=== PATIENT | male | born 1985 | race Two or more races ===

== ENCOUNTER 2016-07-17 17:56 | Emergency (ER) | payer MEDICAID ==
[~2016-07-17] VITALS: Ht 175.3 cm; Wt 117.9 kg
[2016-07-17 20:15] LABS: Basophils # (auto) 0 uL; Basophils % (auto) 0.3 % (0.0-2.0); Eosinophils # (auto) 0.1 uL; Eosinophils % (auto) 0.5 % (0.0-7.0); Hemoglobin 15.4 g/dL (13.5-17.5); Lymphocytes # (auto) 2.5 uL; Lymphocytes % (auto) 17.6 % (10.0-50.0); Mean Corpuscular Hemoglobin 29.5 pg (28.0-32.0); Mean Corpuscular Hgb Conc. 33.5 g/dL (32.0-36.0); Mean Corpuscular Volume 87.8 fL (80.0-100.0); Mean Platelet Volume 8.6 fL (7.4-10.4); Monocytes # (auto) 0.8 uL; Monocytes % (auto) 5.5 % (0.0-12.0); Neutrophils # (auto) 10.9 uL; Neutrophils % (auto) 76.1 % (37.0-80.0); Platelet Count (auto) 401 10^3/uL (140-450); Red Cell Distribution Width 13.4 % (11.6-16.0); White Blood Cell 14.3 10^3/uL (4.4-10.8)
[2016-07-17 20:32] LABS: Urine Bilirubin Negative (Negative); Urine Color Yellow (Yellow); Urine Glucose Normal (Normal); Urine Ketone Negative (Negative); Urine Mucus FEW (None Seen); Urine Nitrite Negative (Negative); Urine RBC 74 /hpf (0 - 3); Urine Urobilinogen Normal (Negative); Urine pH 7.5 (5.0-8.0)
[2016-07-17 20:41] LABS: Albumin 4.3 g/dL (3.4-5.0); BUN/Creatinine Ratio 14.9; Bilirubin, Total 0.3 mg/dL (0.2-1.0); Calcium 9.5 mg/dL (8.5-10.1); Potassium 3.7 mmol/L (3.5-5.1); Total Protein 8.6 g/dL (6.4-8.2)
[2016-07-17 20:42] LABS: Urine Blood 2+ /uL (Negative)
[2016-07-18] MEDS ORDERED: SODIUM CHLORIDE 0.9% 1,000 ML IV ONE (01:00)
[2016-07-18] MEDS ORDERED: NALBUPHINE HCL 10 MG/1ml INJECTION IV ONE (01:00)
[2016-07-18] MEDS ORDERED: PANTOPRAZOLE 40 MG TAB PO ONE (04:15)
[2016-07-18 05:21] VITALS: BP 148/93
== END 2016-07-18 05:24 | disposition home or self-care (01) ==
LOC: ER 18:02
DX: N20.0 Calculus of kidney (principal); N23 Unspecified renal colic
CPT/HCPCS: 36415; 74176; 80053; 81001; 85025; 96361; 96374; 99285; J2300; J7030

== ENCOUNTER 2024-03-04 05:47 | Emergency (ER) | payer MEDICAID ==
[~2024-03-04] VITALS: Ht 175.3 cm; Wt 99.4 kg
[2024-03-04 06:25] VITALS: PULSE 92; RESP 26; O2SAT 94
--- NOTE | 2024-03-04 06:46 | ECG ---
[facility] Test Date: 2024-03-04 Test Time: 06:44:46 Pat Name: ELOISA TAYLOR Department: ED Room: Gender: M Automatic Blocker: BELLO : 1985 Requested By: EMERGENCY EMERGENCY Order Number: [id number] Reading MD: Ashish Casarez Measurements Intervals [place] Rate: 86 P: 49 [place]: 195 QRS: 21 QRSD: 113 T: 23 QT: 376 QTc: 450 Interpretive Statements Sinus rhythm Probable left atrial enlargement Incomplete right bundle branch block ST elevation suggests acute pericarditis Electronically Signed On 03-05-2024 8:49:19 PST by Ashish Casarez Please click the below link to view image of tracing.
--- NOTE | 2024-03-04 07:21 | ED.PDOC ---
HPI Comments 38Y M with PMHx DM presents to ED for chief complaint chest pain. Pt states the chest pain is left-sided and non-radiating. Additional symptom includes left arm weakness/numbness. Pt states he feels his arm "falling asleep" and "jolts" randomly. Symptoms began while pt was having intercourse at approximately 0530 today. Pt states he drank alcohol heavily and did cocaine last night at approximately 0100. No other symptoms reported. Chief Complaint: Chest Pain Time Seen by MD: 06:50 Primary Care Provider: NONE Reviewed Notes: Nurses Notes, Medications, Allergies Allergies: Coded Allergies: NO KNOWN ALLERGIES (Unverified , 07/18/16) Information Source: Patient Mode of Arrival: Ambulatory Severity: Mild Timing: Hours Duration: Since onset Location: Chest (L) Radiation: No Radiation Quality: Other Onset: With Light Exertion Cardiac Risk Factors: Smoker, Drugs PE Risk Factors: None History of: None Modifying Factors: Nothing Associated Signs and Symptoms: Other Past Medical History PAST MEDICAL HISTORY: Anxiety, Depression, DM, Kidney Stones Surgical History: Denies all surgeries Family History Family History: No family hx of Cancer, No family hx of HTN, No family hx ofKidney alex Social History Smoker: Cigarettes Alcohol: Heavy Drugs: Cocaine Lives In: Home Constitutional: denies: chills, diaphoresis, fatigue, fever, malaise, sweats, weakness, others EENTM: denies: blurred vision, double vision, ear bleeding, ear discharge, ear drainage, ear pain, ear ringing, eye pain, eye redness, hearing loss, mouth pain, mouth swelling, nasal discharge, nose bleeding, nose congestion, nose pain, photophobia, tearing, throat pain, throat swelling, voice changes, others Respiratory: denies: cough, hemoptysis, orthopnea, SOB at rest, shortness of breath, SOB with excertion, stridor, wheezing, others Cardiovascular: reports: chest pain; denies: dizzy spells, diaphoresis, Dyspnea on exertion, edema, irregular heart beat, left arm pain, lightheadedness, palpitations, PND, syncope, others Gastrointestinal: denies: abdomen distended, abdominal pain, blood streaked bowels, constipated, diarrhea, dysphagia, difficulty swallowing, hematemesis, melena, nausea, poor appetite, poor fluid intake, rectal bleeding, rectal pain, vomiting, others Genitourinary: denies: burning, dysuria, flank pain, frequency, hematuria, incontinence, penile discharge, penile sore, pain, testicle pain, testicle swelling, urgency, others Neurological: reports: left sided numbness, left sided weakness; denies: dizziness, fainting, headache, numbness, paresthesia, pre-existing deficit, right sided numbness, right sided weakness, seizure, speech problems, tingling, tremors, weakness, others Musculoskeletal: denies: back pain, gout, joint pain, joint swelling, muscle pain, muscle stiffness, neck pain, others Integumetry: denies: bruises, change in color, change in hair/nails, dryness, laceration, lesions, lumps, rash, wounds, others Allergic/Immunocompromised: denies: Difficulty Healing, Frequent Infections, Hives, Itching, others Hematologic/Lymphatic: denies: anemia, blood clots, easy bleeding, easy bruising, swollen glands, others Endocrine: denies: excessive hunger, excessive sweating, excessive thirst, excessive urination, flushing, intolerance to cold, intolerance to heat, unexplained weight gain, unexplained weight loss, others Psychiatric: denies: anxiety, bipolar disorder, depression, hopeless, panic disorder, schizophrenia, sleepless, suicidal, others All Other Systems: Reviewed and Negative Physical Exam General Appearance: Mild Distress, Normal HEENT: Normal ENT Inspection, PERRL/EOMI, Pharynx Normal, TMs Normal Neck: Full Range of Motion, Non-Tender, Normal, Normal Inspection Respiratory: Chest Non-Tender, Lungs Clear, No Accessory Muscle Use, No Respiratory Distress, Normal Breath Sounds Cardiovascular: No Edema, No JVD, No Murmur, No Gallop, Normal Peripheral Pulses, Regular Rate/Rhythm Breast Exam: Deferred Gastrointestinal: No Organomegaly, Non Tender, No Pulsatile Mass, Normal Bowel Sounds, Soft Genitalia: Deferred Pelvic: Deferred Rectal: Deferred Extremities: No calf tenderness, Normal capillary refill, Normal inspection, Normal range of motion, Non-tender, No pedal edema Musculoskeletal : Apperance: Normal Neurologic: Alert, development executive II-XII nml as Tested, No Motor Deficits, Normal Affect, Normal Mood, No Sensory Deficits Cerebellar Function: Normal Reflexes: Normal Skin: Dry, Normal Color, Warm Peripheral Pulses: 1+ carotid (R), 1+ carotid (L) Lymphatic: No Adenopathy EKG EKG : Pulse Rate (adult): 112 [place]: RAD Cardiac Rhythm: ST Was a procedure done? Was a procedure done?: No CP Differential Dx Differential Diagnosis: Anxiety / Panic Attack, Electrolyte Disorder, Hyperventilation, Sinus Tachycardia Differential Diagnosis: HTN Essential Differential Diagnosis: Chest Wall Pain, Costochondritis, Esophageal reflux/spasm, Pneumonia X-Ray, Labs, Meds, VS Vital Signs Date Time Temp Pulse Resp B/P (MAP) Pulse Ox O2 Delivery O2 Flow Rate FiO2 03/04/24 10:00 97 22 149/76 (100) 98 03/04/24 07:48 97.8 89 17 131/72 (91) 98 97.8 03/04/24 07:45 89 17 98 Room Air* 0 21 03/04/24 07:42 112 03/04/24 06:44 86 03/04/24 06:25 98.7 92 26 132/80 (97) 94 98.7 03/04/24 06:25 92 26 94 Room Air* 0 21 03/04/24 05:51 112 03/04/24 05:50 98.3 113 18 150/101 (117) 95 Lab Test 03/04/24 09:09 03/04/24 09:00 03/04/24 07:08 03/04/24 06:00 Range/Units Troponin I High Sensitivity 21 18 18 </=54 ng/L Urine Color Light-yellow Yellow Urine Clarity Clear Clear Urine pH 6.5 5.0-9.0 Urine Specific [place] 1.014 1.001-1.035 Urine Protein 1+ H Negative Urine Ketones 1+ H Negative Urine Blood Negative Negative /uL Urine Nitrite Negative Negative Urine Bilirubin Negative Negative Urine Urobilinogen Normal Negative mg/dL Urine Leukocyte Esterase Negative Negative /uL Urine RBC 1 0 - 3 /hpf Urine WBC 3 0 - 3 /hpf Urine Squamous Epithelial Cells Few <5 /hpf Urine Bacteria Few H None Seen /hpf Urine Mucus Few None Seen Urine Glucose 4+ H Normal mg/dL White Blood Count 8.7 4.4-10.8 10^3/uL Red Blood Count 5.07 4.5-5.90 10^6/uL Hemoglobin 15.6 13.5-17.5 g/dL Hematocrit 45.1 41.0-53.0 % Mean Corpuscular Volume 89.0 80.0-100.0 fL Mean Corpuscular Hemoglobin 30.7 28.0-32.0 pg Mean Corpuscular Hemoglobin Concent 34.5 32.0-36.0 g/dL Red Cell Distribution Width 13.0 11.8-14.3 % Platelet Count 389 140-450 10^3/uL Mean Platelet Volume 8.5 6.9-10.8 fL Neutrophils (%) (Auto) 60.4 37.0-80.0 % Lymphocytes (%) (Auto) 33.4 10.0-50.0 % Monocytes (%) (Auto) 5.0 0.0-12.0 % Eosinophils (%) (Auto) 0.7 0.0-7.0 % Basophils (%) (Auto) 0.5 0.0-2.0 % Neutrophils # (Auto) 5.3 1.6-8.6 10 ^3/uL Lymphocytes # (Auto) 2.9 0.4-5.4 10 ^3/uL Monocytes # (Auto) 0.4 0-1.3 10 ^3/uL Eosinophils # (Auto) 0.1 0-0.8 10 ^3/uL Basophils # (Auto) 0 0-0.2 10 ^3/uL Nucleated Red Blood Cells 0.1 % D-Dimer, Quantitative < 0.19 0.0-0.49 mg/L FEU Sodium Level 137 136-145 mmol/L Potassium Level 3.4 L 3.5-5.1 mmol/L Chloride Level 98 98-107 mmol/L Carbon Dioxide Level 26 20-31 mmol/L Anion Gap 13 5-15 Blood Urea Nitrogen 7 L 9-23 mg/dL Creatinine 0.89 0.700-1.30 mg/dL Glomerular Filtration Rate Calc 114 >90 mL/min BUN/Creatinine Ratio 7.9 L 10.0-20.0 Serum Glucose 239 H 74-106 mg/dL Calcium Level 10.4 8.7-10.4 mg/dL Magnesium Level 2.0 1.6-2.6 mg/dL Total Bilirubin 0.4 0.2-1.0 mg/dL Aspartate Amino Transferase (AST) 34 13-40 U/L Alanine Aminotransferase (ALT) 52 H 7-40 U/L Alkaline Phosphatase 100 46-116 U/L Total Protein 7.9 5.7-8.2 g/dL Albumin 4.9 H 3.2-4.8 g/dL Thyroid Stimulating Hormone (TSH) 1.43 0.55-4.78 uIU/mL Test 03/04/24 05:59 Range/Units POC Glucose 248 H 70-106 mg/dl Current Medications Medications (Trade) Dose Ordered Sig/[place] Route Start Time Stop Time Status Last Admin Sodium Chloride 1,000 ml @ 1,000 mls/hr Q1H ONCE IVB 03/04/24 07:30 03/04/24 08:29 DC 03/04/24 08:10 [place] [id number] Ph: [phone] DIAGNOSTIC IMAGING Diagnostic Imaging Report : [id number] Signed PATIENT: ELOISA TAYLOR ACCT: [id number] UNIT: [id number] : 1985 LOC: ER ROOM / BED: / AGE / SEX: 38 / M ADM STATUS: REG ER SERVICE 6 ORDERING PHYSICIAN: CARINA ASKEW MD PROCEDURE(s): CXR2 - CHEST TWO VIEWS ROUTINE REASON: palpitations cocaine use ORDER NUMBER(s): [id number], ACCESSION NUMBER(s): [id number] CHEST RADIOGRAPH Indication: palpitations cocaine use Technique: Frontal and lateral view of the chest was obtained Comparison: None FINDINGS: Lines and Tubes: None Lungs: Clear Pleura: No effusion. No pneumothorax. Cardiomediastinal contours: Unremarkable Bones: Unremarkable IMPRESSION: 1. No evidence of acute disease. ATED BY: BREA FLORES MD DICTATED DATE/TIME: 03/04/24806 SIGNED BY: BREA FLORES MD SIGNED DATE/TIME: 03/04/24806 CC: X-Ray, Labs, Meds, VS Comment Course in the emergency department eventful patient came in because of a sudden onset of chest pains palpitations after using cocaine and heavy drinking during the night He suddenly turned with a generalized weakness after having sex so he came to the emergency department for further care Blood pressure 150 over one one Blood sugar 248 Chest x-ray is normal EKG shows sinus tachycardia at 112 with right axis deviation Troponin 18 18 and 21 CBC normal Urine shows 4+ glucose D-dimer less than 0.19 CMP potassium 3.4 blood sugar 230 Magnesium 2.0 TSH 1.43 Patient has been observed for several hours he is feeling better and will be discharged to follow up his PCP Time of 1ST Reevaluation: 07:20 Reevaluation 1ST: Unchanged Patient Education/Counseling: Diagnosis, Treatment Family Education/Counseling: No Family Present Departure 1 Departure Time of Disposition: 11:19 Impression: Primary Impression: Musculoskeletal chest pain Additional Impressions: Uncontrolled diabetes mellitus Hypertension Cocaine abuse ETOH abuse Marijuana user Hypokalemia Disposition: 01 HOME / SELF CARE / HOMELESS Condition: Fair Additional Instructions: Push fluids stop using alcohol cocaine or marijuana at this time Discharged With: Self Critical Care Note Critical Care Time?: No Stability Stability form required: No Heart Score Heart Score: Heart Score Response (Comments) Value History Slightly Suspicious 0 EKG Repolarization Disturb 1 Age <45 0 Risk Factors 1 or 2 risk factors 1 Troponin Normal limit 0 Total 2 I personally scribed for CARINA ASKEW MD ([email or web address]) on 03/04/24 at 07:21. Electronically submitted by Halima Fairchild ([facility]). I personally scribed for CARINA ASKEW MD ([email or web address]) on 03/04/24 at 08:14. Electronically submitted by Halima Fairchild ([employer]). CARINA ASKEW MD Mar 04, 2024 07:21
[2024-03-04 07:45] VITALS: PULSE 89; RESP 17; O2SAT 98
[2024-03-04 07:46] LABS: Basophils # (auto) 0 10 ^3/uL (0-0.2); Basophils % (auto) 0.5 % (0.0-2.0); Eosinophils # (auto) 0.1 10 ^3/uL (0-0.8); Eosinophils % (auto) 0.7 % (0.0-7.0); Hematocrit 45.1 % (41.0-53.0); Hemoglobin 15.6 g/dL (13.5-17.5); Lymphocytes # (auto) 2.9 10 ^3/uL (0.4-5.4); Lymphocytes % (auto) 33.4 % (10.0-50.0); Mean Corpuscular Hemoglobin 30.7 pg (28.0-32.0); Mean Corpuscular Hgb Conc. 34.5 g/dL (32.0-36.0); Monocytes # (auto) 0.4 10 ^3/uL (0-1.3); Neutrophils # (auto) 5.3 10 ^3/uL (1.6-8.6); Neutrophils % (auto) 60.4 % (37.0-80.0); Nucleated Red Blood Cells % 0.1 %; Platelet Count (auto) 389 10^3/uL (140-450); Red Blood Cells 5.07 10^6/uL (4.5-5.90); White Blood Cell 8.7 10^3/uL (4.4-10.8)
[2024-03-04 07:48] VITALS: TEMP 97.8
--- NOTE | 2024-03-04 08:08 | DVH ---
CHEST RADIOGRAPH Indication: palpitations cocaine use Technique: Frontal and lateral view of the chest was obtained Comparison: None FINDINGS: Lines and Tubes: None Lungs: Clear Pleura: No effusion. No pneumothorax. Cardiomediastinal contours: Unremarkable Bones: Unremarkable IMPRESSION: 1. No evidence of acute disease.
[2024-03-04] MEDS: SODIUM CHLORIDE 0.9% 1,000 ML IVB ONE (08:10)
[2024-03-04 08:15] LABS: Alanine Aminotransferase 52 U/L (7-40); Albumin 4.9 g/dL (3.2-4.8); Alkaline Phosphatase 100 U/L (46-116); Anion Gap 13 (5-15); Aspartate Aminotransferase 34 U/L (13-40); BUN/Creatinine Ratio 7.9 (10.0-20.0); Bilirubin, Total 0.4 mg/dL (0.2-1.0); Blood Urea Nitrogen 7 mg/dL (9-23); Calcium 10.4 mg/dL (8.7-10.4); Carbon Dioxide 26 mmol/L (20-31); Chloride 98 mmol/L (98-107); Glucose 239 mg/dL (74-106); Potassium 3.4 mmol/L (3.5-5.1); Sodium 137 mmol/L (136-145)
[2024-03-04 08:16] LABS: Total Protein 7.9 g/dL (5.7-8.2)
[2024-03-04 10:27] LABS: Urine Bacteria FEW /hpf (None Seen); Urine Blood Negative /uL (Negative); Urine Clarity Clear (Clear); Urine Color Light-Yellow (Yellow); Urine Mucus FEW (None Seen); Urine Protein, UAD 1+ (Negative); Urine Specific Gravity 1.014 (1.001-1.035); Urine Squamous Epithelial Cell FEW /hpf (<5); Urine Urobilinogen Normal (Negative); Urine WBC 3 /hpf (0 - 3); Urine pH 6.5 (5.0-9.0)
[2024-03-04 11:37] VITALS: BP 131/72; PULSE 95; RESP 17; O2SAT 97
--- NOTE | 2024-03-10 14:02 | ECG ---
[facility] Test Date: 2024-03-04 Test Time: 05:51:49 Pat Name: ELOISA TAYLOR Department: ER Room: Gender: M Bronc Buster: JORDEN : 1985 Requested By: EMERGENCY EMERGENCY Order Number: [id number] Reading MD: Ashish Casarez Measurements Intervals [place] Rate: 112 P: 48 [place]: 163 QRS: 183 QRSD: 101 T: 1 QT: 354 QTc: 484 Interpretive Statements Sinus tachycardia Right axis deviation Abnormal R-wave progression, late transition ST elev, probable normal early repol pattern Borderline prolonged QT interval Electronically Signed On 03-10-2024 17:51:27 PST by Ashish Casarez Please click the below link to view image of tracing.
== END 2024-03-04 11:42 | disposition home or self-care (01) ==
LOC: ER 05:47
DX: R07.89 Other chest pain (principal); I10 Essential (primary) hypertension; E11.65 Type 2 diabetes mellitus with hyperglycemia; E87.6 Hypokalemia; F32.A Depression, unspecified; F41.9 Anxiety disorder, unspecified; F10.10 Alcohol abuse, uncomplicated; F14.10 Cocaine abuse, uncomplicated; F17.210 Nicotine dependence, cigarettes, uncomplicated
CPT/HCPCS: 36415; 71046; 80053; 81001; 82962; 83735; 84443; 84484; 85025; 85379; 93005; 96360; 99285; J7030